=== PATIENT | male | born 1980 | race Caucasian/White ===

== ENCOUNTER → 2023-07-15 | Emergency (ER) | payer SELFPAY ==
[~2023-07-15] MED LIST: HYDROCODONE/APAP 7.5/325 MG TAB ONE; LIDOCAINE 1% 20 ML MDV ONE
--- NOTE | 2023-07-15 13:43 | RAD REPORT ---
EXAM DESCRIPTION: RAD -Hand Left 3 View - 07/15/2023 1:31 pm CLINICAL HISTORY: Left hand pain status post injury FINDINGS: Old fracture second proximal phalanx No acute fracture or dislocation seen A radiopaque foreign body is not seen. 7 millimeter well-circumscribed lucency proximal scaphoid may represent a cyst. Follow-up x-ray in 3 months recommended to assess stability
--- NOTE | 2023-07-15 13:51 | EDPHYS ---
Physician Documentation [facility] Name: Isaiah Stack II Age: 43 yrs Sex: Male : 1980 Arrival Date: 07/15/2023 Time: 12:59 Bed 10 Private MD: ED Physician Luis Pastor HPI: 07/14 13:05 This 43 yrs old Male presents to ER via Unassigned with complaints of Laceration To kb Hand - Left. 13:05 Patient is a 43-year-old male who presents for laceration to dorsal aspect of left hand kb that occurred just prior to arrival. States he was cutting something with a razor blade knife and accidentally cut his hand. Denies any other injury. Full range of motion.. Historical: - Allergies: 13:12 No Known Allergies; kd3 - Immunization history:: Adult Immunizations up to date. - Social history:: Smoking status: Patient denies any tobacco usage or history of. ROS: 13:05 Constitutional: As per HPI kb Exam: 13:05 Constitutional: This is a well developed, well nourished patient who is awake, alert, kb and in no acute distress. Head/Face: Normocephalic, atraumatic. ENT: Moist Mucous membranes Cardiovascular: Regular rate Respiratory: Respirations even and unlabored. No increased work of breathing. Talking in full sentences MS/ Extremity: Pulses equal, no cyanosis. Neurovascular intact. Full, normal range of motion. Neuro: Awake and alert, GCS 15, oriented to person, place, time, and situation. Moves all extremities. Normal gait. 13:05 Skin: injury, laceration(s), the wound is approximately 3 cm(s), of the dorsum of left hand, that can be described as clean, no foreign body, linear, without bleeding, Vital Signs: 13:11 BP 102 / 75; Pulse 71; Resp 18; Temp 98.2(O); Pulse Ox 100% on R/A; Weight 65.77 kg; kd3 Height 5 ft. 6 in. ; Pain 10/10; 13:11 Body Mass Index 23.40 (65.77 kg, 167.64 cm) kd3 13:11 Pain Scale: Adult kd3 MDM: 13:02 Patient medically screened. kb 13:06 Differential diagnosis: superficial laceration, tendon injury, vascular injury. Data kb reviewed: vital signs, nurses notes. 13:48 Counseling: I had a detailed discussion with the patient and/or guardian regarding the kb historical points, exam findings, and any diagnostic results supporting the discharge/admit diagnosis, radiology results, the need for outpatient follow up, a family practitioner, to return to the emergency department if symptoms worsen or persist or if there are any questions or concerns that arise at home. ED course: Prepped pt for sutures and was about to start procedure when pt decided he did not want sutures placed. States he prefers to have steri-strips because he doesn't want the lidocaine injected. I recommended sutures to close wound properly. Pt states he does not want sutures. . 07/14 13:04 Order name: Hand Left 3 View XRAY; Complete Time: 13:48 kb 07/14 13:04 Order name: Dressing - Wound; Complete Time: 13:40 kb 07/14 13:04 Order name: Gloves, Sterile; Complete Time: 13:40 kb 07/14 13:04 Order name: Prolene, Sutures; Complete Time: 13:40 kb 07/14 13:04 Order name: Setup Suture Tray; Complete Time: 13:40 kb Administered Medications: 13:19 Drug: Hydrocodone-Acetaminophen PO (7.5 mg-325 mg) 1 tabs PO once Route: PO; kd3 Disposition Summary: 07/15/23 13:50 Discharge Ordered Notes: Location: Home kb Condition: Stable kb Diagnosis - Laceration without foreign body of left hand kb Followup: kb - With: Emergency Department - When: As needed - Reason: Worsening of condition Followup: kb - With: Private Physician - When: 2 - 3 days - Reason: Recheck today's complaints, Continuance of care, Re-evaluation by your physician Discharge Instructions: - Discharge Summary Sheet kb - Laceration Care, Adult, [id number] kb Forms: - Medication Reconciliation Form kb - Thank You Letter kb - Antibiotic Education kb - Prescription Opioid Use kb - Patient Portal Instructions kb - Leadership Thank You Letter kb Prescriptions: - Cephalexin 500 mg Oral Capsule - take 1 capsule ORAL route every 8 hours for 10 days; 30 capsule; Refills: 0, kb Product Selection Permitted Signatures: Dispatcher [employer] Tamara Sam, DANIEL-C DANIEL-Paula Marinelli, RN RN kd3
--- NOTE | 2023-07-15 13:51 | ER ---
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 kd3 Coronavirus screen: Vaccine status: Patient reports receiving the 2nd dose of the covid vaccine. Ebola Screen: No symptoms or risks identified at this time. Complicating Factors: There are no complicating factors for this patient. Initial Sepsis Screen: Does the patient meet any 2 criteria? No. Patient's initial sepsis screen is negative. Does the patient have a suspected source of infection? No. Patient's initial sepsis screen is negative. Risk Assessment: Do you want to hurt yourself or someone else? Patient reports no desire to harm self or others. Onset of symptoms was July 15, 2023. 13:11 Method Of Arrival: Ambulatory kd3 13:11 Acuity: KING 4 kd3 Triage Assessment: 13:12 General: Appears in no apparent distress. Behavior is calm, cooperative. Pain: kd3 Complains of pain in left hand and dorsum of left hand. Injury Description: Laceration sustained to dorsum of left hand. Historical: - Allergies: 13:12 No Known Allergies; kd3 - Immunization history:: Adult Immunizations up to date. - Social history:: Smoking status: Patient denies any tobacco usage or history of. Screenin:31 [facility] ED Fall Risk Assessment (Adult) History of falling in the last 3 months, kd3 including since admission No falls in past 3 months (0 pts) Confusion or Disorientation No (0 pts) Intoxicated or Sedated No (0 pts) Impaired Gait No (0 pts) Mobility Assist Device Used No (0 pt) Altered Elimination No (0 pt) Score/Fall Risk Level 0 - 2 = Low Risk Oriented to surroundings. Abuse screen: Denies threats or abuse. Denies injuries from another. Nutritional screening: No deficits noted. Tuberculosis screening: No symptoms or risk factors identified. Assessment: 13:12 General: Appears in no apparent distress. Pt left hand laceration washed with kd3 chlorhexidine soap and water and Iodine. bleeding is controlled. . 14:31 Musculoskeletal: Circulation, motion, and sensation intact. kd3 14:32 Injury Description: Laceration is clean. kd3 Vital Signs: 13:11 BP 102 / 75; Pulse 71; Resp 18; Temp 98.2(O); Pulse Ox 100% on R/A; Weight 65.77 kg; kd3 Height 5 ft. 6 in. ; Pain 10/10; 13:11 Body Mass Index 23.40 (65.77 kg, 167.64 cm) kd3 13:11 Pain Scale: Adult kd3 ED Course: 13:01 Patient arrived in ED. im 13:01 Tamara Melton FNP-C is PHCP. kb 13:02 Luis Pastor MD is Attending Physician. kb 13:10 Paula Hillman, RN is Primary Nurse. kd3 13:12 Triage completed. kd3 13:12 Arm band placed on right wrist. kd3 13:33 Hand Left 3 View XRAY In Process Unspecified. EDMS 14:31 No provider procedures requiring assistance completed. Patient did not have IV access kd3 during this emergency room visit. 14:32 Patient has correct armband on for positive identification. Provided Education on: kd3 antibiotic . Administered Medications: 13:19 Drug: Hydrocodone-Acetaminophen PO (7.5 mg-325 mg) 1 tabs PO once Route: PO; kd3 Medication: 14:32 VIS not applicable for this client. kd3 Outcome: 13:50 Discharge ordered by . kb 14:31 Discharged to home ambulatory, kd3 14:31 Condition: stable 14:31 Condition: stable 14:31 Discharge instructions given to patient, Instructed on discharge instructions, follow up and referral plans. Demonstrated understanding of instructions, follow-up care, medications, Prescriptions given X 1, 14:32 Patient left the ED. kd3 Signatures: Dispatcher [employer] EDMS Tamara Melton FNP-C FNP-Paula Marinelli, RN RN kd3 Martita Garcia im
[2023-07-15 15:25] VITALS: BP 102/75; TEMP 98.2; O2SAT 100
== END ==
LOC: ER 12:59
DX: S61.412A Laceration without foreign body of left hand, initial encounter (principal)
CPT/HCPCS: J2001